=== PATIENT | male | born 1975 | race American Indian/Alaskan Native ===

== ENCOUNTER 2016-08-05 17:40 | Emergency (ER) | payer OTHER ==
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
[2016-08-05] MEDS ORDERED: ZOFRAN IV ONE (19:04)
[2016-08-05] MEDS ORDERED: MORPHINE IV ONE (19:04)
[2016-08-05 19:29] LABS: Hematocrit 39.2 % (35.5-45.6); Hemoglobin 12.6 gm/dl (11.8-15.2); Mean Corpuscular HGB Conc 32 % (32-34); Mean Corpuscular Hemoglobin 29 pg (28-32); Mean Corpuscular Volume 91 fl (84-94); Platelet Count 341 K/mm3 (140-440); Red Blood Count 4.31 M/mm3 (3.65-5.03); Red Cell Distribution Width 13.1 % (13.2-15.2); White Blood Count 6.3 K/mm3 (4.5-11.0)
--- NOTE | 2016-08-05 19:33 | Ultrasound Report ---
FINAL REPORT EXAM: US TESTICULAR DOPPLER COMP HISTORY: Testicular pain, concern for torsion TECHNIQUE: Ultrasound of scrotum PRIORS: None. FINDINGS: Examination of the testicles demonstrates both to be normal in size and normal and homogeneous in echogenicity with arterial and venous blood flow noted bilaterally. No focal abnormality is noted in either testicle. The right testicle measures 4.5 x 2.8 x 3.6 cm and the left measures 4.3 x 2.7 x 3.4 cm. No evidence for torsion is seen. The right epididymis appears normal in size and echogenicity with normal blood flow. A small cyst in the head of the right epididymis is present measuring 5.5 x 3.3 x 5.4 mm. On the left, there is diffuse enlargement of the left epididymis which is hypoechoic throughout. Hyperemia is present throughout the epididymis, also somewhat involving the left testicle. Findings suggest acute epididymo-orchitis. In addition, there is a multi septated complex moderate hydrocele in the left hemiscrotum. No evidence for varicoceles are present bilaterally. There is generalized skin thickening throughout the scrotal wall, greater on the left than the right. Findings are likely associated with edema. IMPRESSION: 1. Acute epididymo-orchitis in the left 2. Complex moderate hydrocele on the left 3. Diffuse scrotal wall thickening 4. Normal right testicle. 5. No evidence for torsion bilaterally.
[2016-08-05 19:40] LABS: INR 1.02 (0.87-1.13)
[2016-08-05 19:50] LABS: Alanine Aminotransferase 18 units/L (7-56); Albumin 3.8 g/dL (3.9-5); Albumin/Globulin Ratio 1.1 %; Alkaline Phosphatase 51 units/L (35-129); Anion Gap 20 mmol/L; BUN/Creatinine Ratio 12.22; Blood Urea Nitrogen 11 mg/dL (9-20); Calcium 9.1 mg/dL (8.4-10.2); Carbon Dioxide 26 mmol/L (22-30); Chloride 97.2 mmol/L (98-107); Glucose 92 mg/dL (75-100); Potassium 3.8 mmol/L (3.6-5.0); Sodium 139 mmol/L (137-145); Total Protein 7.4 g/dL (6.3-8.2)
[2016-08-05 19:52] LABS: Bilirubin,Direct < 0.2 mg/dL (0-0.2); Bilirubin,Indirect 0.1 mg/dL
[2016-08-05] MEDS ORDERED: NACL ONE (20:00)
[2016-08-05 20:13] LABS: Basophils % (Manual) 0 % (0.0-1.8); Blastocytes % (Manual) 0 %
[2016-08-05 20:14] LABS: Diff Status Complete; Platelet Estimate Consistent w Auto; RBC Morphology Normal
[2016-08-05 20:26] LABS: Bilirubin,Urine NEG (Negative); Blood,Urine MOD (Negative); Ketones,Urine NEG (Negative); Leukocyte Esterase,Urine SM (Negative); Mucus,Urine FEW /HPF; Nitrite,Urine NEG (Negative); Protein,Urine <15 mg/dL mg/dL (Negative)
[2016-08-05 21:00] VITALS: BP 151/93
[2016-08-05] MEDS ORDERED: XYLOCAINE 1% MPF 5 mL INFILTRATI ONE (21:48)
[2016-08-05] MEDS ORDERED: ROCEPHIN IM ONE (21:48)
--- NOTE | 2016-08-05 21:52 | Cat Scan Report ---
FINAL REPORT EXAM: CT ABDOMEN PELVIS W CON HISTORY: Abdominal Pain TECHNIQUE: Standard enhanced CT of the abdomen and pelvis. Delayed imaging through the kidneys and bladder were obtained. Coronal and sagittal reconstruction was also performed. Contrast: 100 mL Omnipaque 300 given IV. PRIORS: None. FINDINGS: Within the abdomen, the liver, spleen, pancreas, gallbladder, and adrenal glands are unremarkable. There is a 1.9 cm cyst in the upper pole left kidney. 1 cm cyst in the upper pole right kidney is seen. There is a cluster of enlarged lymph nodes in the left periaortic region, caudal to the left renal vein (axial image 75) measuring up to 1.4 x 1.2 cm. No evidence for pelvic lymphadenopathy is seen. Moderate stool is present throughout the colon. The bowel loops have normal caliber. No soft tissue mass, fluid collection, inflammatory change, or free air is seen within the abdomen or pelvis. The appendix is normal. Within the pelvis, the bladder is contains a Perez catheter but is otherwise unremarkable. The prostate is normal. No evidence for mass or lymphadenopathy is seen in the pelvis. Images through the upper abdomen include the lung bases which are expanded and clear. Bony structures show no focal abnormalities and are intact. IMPRESSION: 1. no acute intra-abdominal process noted. 2. Cluster of enlarged lymph nodes in the left periaortic region, caudal to the left renal vein. Significance is uncertain but an entity such as lymphoma is not excluded. 3. Moderate stool present throughout the entire colon which can be associated with constipation.
== END 2016-08-06 ==
LOC: ED 17:40 → EEVIPCON 17:40 → ED 08-06
DX: N45.2 Orchitis (principal); N45.1 Epididymitis; R10.30 Lower abdominal pain, unspecified; I10 Essential (primary) hypertension; I25.2 Old myocardial infarction; F17.200 Nicotine dependence, unspecified, uncomplicated
CPT/HCPCS: 36415; 74177; 80048; 80074; 81001; 85007; 85025; 85610; 93975; 96372; 96374; 96375; 99284; J0696; J2270; J2405; Q9967

== ENCOUNTER 2016-08-12 14:08 | Day surgery (SDC) | payer OTHER ==
[~2016-08-12 14:08] MED LIST: ANCEF/STERILE WATER 2 GM/20 ML 2 GM/20 ML SYRINGE IV NR; DIPRIVAN 10 MG/ML IV ONE; NACL 0.9% 1000 ML 1,000 ML IV SCH; PEPCID PO NR; VERSED IV NR
[2016-08-12] MEDS ORDERED: SUBLIMAZE ONE (14:41)
[2016-08-12] MEDS ORDERED: XYLOCAINE MPF 2% ONE (14:42)
--- NOTE | 2016-08-12 14:54 | Anesthesia Consultation ---
Anesthesia Consult and Med Hx Date of service: 08/12/16 - Airway Anesthetic Teeth Evaluation: Good (some missing teeth) ROM Head & Neck: Adequate Mental/Hyoid Distance: Adequate Mallampati Class: Class II Intubation Access Assessment: Probably Good - Pre-Operative Health Status ASA Pre-Surgery Classification: ASA2 Proposed Anesthetic Plan: General - Pulmonary Hx Smoking: Yes (1/2 pack x 20 years) - Cardiovascular System Hx Hypertension: Yes Hx Heart Attack/AMI: Yes (2004) - Endocrine Hx Renal Disease: No (scrotal swelling)
--- NOTE | 2016-08-12 14:55 | Anesthesia Day of Surgery ---
Anesthesia Day of Surgery - Day of Surgery Patient Examined: Yes Patient H&P Reviewed: Yes Patient is NPO: Yes
[2016-08-12] MEDS ORDERED: ANCEF/STERILE WATER 2 GM/20 ML 2 GM/20 ML SYRINGE IV NR (15:00)
[2016-08-12] MEDS ORDERED: ZOFRAN IV PRN (15:05)
[2016-08-12] MEDS ORDERED: DIPRIVAN 10 MG/ML IV ONE (15:30)
[2016-08-12] MEDS ORDERED: NACL 0.9% IR ONE (15:30)
[2016-08-12] MEDS ORDERED: DILAUDID ONE (15:52)
[2016-08-12] MEDS ORDERED: BREVIBLOC IV ONE (15:58)
[2016-08-12] MEDS ORDERED: DECADRON ONE (16:00)
[2016-08-12] MEDS ORDERED: NACL 0.9% 1000 ML 1,000 ML ONE (16:00)
[2016-08-12] MEDS ORDERED: ZOFRAN ONE (16:00)
[2016-08-12] MEDS ORDERED: TORADOL ONE (16:33)
--- NOTE | 2016-08-12 16:40 | Post Operative Note ---
Date of procedure: 08/12/16 Pre-op diagnosis: scrotal pain inflamation Post-op diagnosis: other (severe epididymoorchitis) Findings: purulent Procedure: L orch Anesthesia: GETA Surgeon: JASON HARO Estimated blood loss: minimal Pathology: list (l testes) Specimen disposition: to lab Condition: stable Disposition: PACU
--- NOTE | 2016-08-12 16:41 | Discharge Summary ---
Short Stay Discharge Plan Activity: other (no straining ) Weight Bearing Status: Partial Weight Bearing Diet: regular Wound: keep clean and dry Special Instructions: other (dressing change daily ) Durable Medical Equipment Needed Upon Discharge: other (has carlos alberto ) Follow up with: PRIMARY CARE, [Primary Care Provider] - 7 Days JASON HARO MD [Staff Physician] - 08/18/16
--- NOTE | 2016-08-12 16:45 | Post Anesthesia Evaluation ---
- Post Anesthesia Evaluation Patient Participated: Yes Airway Patent: Yes Stable Respiratory Function: Yes Nausea/Vomiting: No Temp > 96.8F: Yes Pain Manageable: Yes Adequeate Hydration: Yes Anesthesia Complications: No
[2016-08-12] MEDS: DILAUDID IV PRN ×3 (17:11→17:56)
--- NOTE | 2016-08-12 20:55 | Operative Report ---
PREOPERATIVE DIAGNOSES: Severe epididymal orchitis, inflammatory scrotum with the inability to walk and progressive inflammation and pain over the last approximately 2 weeks. POSTOPERATIVE DIAGNOSES: Severe epididymal orchitis, inflammatory scrotum with the inability to walk and progressive inflammation and pain over the last approximately 2 weeks. PROCEDURE: Left scrotal exploration. CULTURES: Left orchiectomy. SURGEON: Dejon Landa MD ANESTHESIA: General. FINDINGS: This is a gentleman with progressive swelling and pain, left hemiscrotum. He is now unable to walk. It has not gotten better. It has just gotten worse. I had a long discussion with the physician [facility] the [facility] and he now presents for exploration. DESCRIPTION OF PROCEDURE: The patient brought to the operating room and placed on the operating table. Following induction of anesthesia, placed in supine position, prepped and draped in usual sterile fashion. An oblique incision was carried through severe edematous scrotal tissue and fascia. This tissue was weeping with all the edema. The fascia was adherent to the tunica vaginalis. We dissected it free circumferentially and then opened this very thickened vaginalis. There was cloudy fluid, which was cultured. The vaginalis was opened, which was thickened and the entire epididymis and testis were inflamed. The testis was very small and there was a suppurative exudate all over the testis and epididymis. The entire inflammation went up the cord. There was no way to save ____ testis, which was quite small and very soft, inflamed and infected. We then isolated all the surrounding fascial fibers with vessels and tied this. The cord was divided into four segments and suture ligated and tied. The patient tolerated the procedure well. Minimal blood loss. No significant complications. Wound was irrigated. The fascia was approximated with 3-0 and 2-0 chromic, skin with 3-0 and 2-0 chromic after a Jamari drain was placed in dependent portion of the scrotum and brought to recovery room with minimal blood loss in stable condition. JOB# [id number] SANGEETA/ANNA MARIE
[2016-08-12 22:05] VITALS: BP 132/84
== END 2016-08-12 18:35 ==
LOC: OR 14:08 → EEVIPCON 16:00 → EDSTATUS 16:00 → OR 18:35
PROVIDERS: ATTEND Urology
DX: N45.2 Orchitis (principal); N49.2 Inflammatory disorders of scrotum; F17.210 Nicotine dependence, cigarettes, uncomplicated; I10 Essential (primary) hypertension; Z79.899 Other long term (current) drug therapy
CPT/HCPCS: 54522; 87075; 87116; 88305; J0690; J1100; J1170; J1885; J2250; J2405; J2704; J3010; J7030

== ENCOUNTER 2017-07-28 21:03 | Emergency (ER) | payer SELFPAY ==
[2017-07-28] MEDS ORDERED: ASPIRIN PO ONE (21:53)
[2017-07-28 21:54] VITALS: BP 115/74
[2017-07-28 22:09] LABS: Basophils % (Auto) 0.5 % (0.0-1.8); Eosinophils # (Auto) 0.5 K/mm3 (0.0-0.4); Eosinophils % (Auto) 7.3 % (0.0-4.3); Hematocrit 37.5 % (35.5-45.6); Hemoglobin 12.2 gm/dl (11.8-15.2); Lymphocytes # (Auto) 1.9 K/mm3 (1.2-5.4); Mean Corpuscular HGB Conc 33 % (32-34); Mean Corpuscular Hemoglobin 30 pg (28-32); Mean Corpuscular Volume 92 fl (84-94); Monocytes # (Auto) 0.5 K/mm3 (0.0-0.8); Platelet Count 286 K/mm3 (140-440); Red Blood Count 4.07 M/mm3 (3.65-5.03); Red Cell Distribution Width 12.9 % (13.2-15.2)
[2017-07-28 22:19] LABS: INR 0.95 (0.87-1.13)
[2017-07-28 22:20] LABS: Partial Thromboplastin Time 30.3 Sec. (24.2-36.6)
[2017-07-28 22:28] LABS: BUN/Creatinine Ratio 13; Blood Urea Nitrogen 13 mg/dL (9-20); Calcium 9.1 mg/dL (8.4-10.2); Hemolysis Index 10
== END 2017-07-29 02:55 | disposition left against medical advice (07) ==
LOC: ED 21:03
DX: R07.9 Chest pain, unspecified (principal); M54.2 Cervicalgia; I10 Essential (primary) hypertension; I25.2 Old myocardial infarction; F17.200 Nicotine dependence, unspecified, uncomplicated; Z53.21 Procedure and treatment not carried out due to patient leaving prior to being seen by health care provider
CPT/HCPCS: 36415; 80048; 84484; 85025; 85610; 85730; 93005; 93010

== ENCOUNTER 2019-01-21 05:51 | Emergency (ER) | payer SELFPAY ==
[2019-01-21] MEDS ORDERED: cloNIDine 0.1 MG TAB PO ONE ×2 (06:05→08:43)
[2019-01-21] MEDS ORDERED: cloNIDine 0.1 MG TAB ONE (06:09)
[2019-01-21] MEDS ORDERED: ONDANSETRON 4 MG/2 ML INJ IV ONE (06:48)
[2019-01-21] MEDS ORDERED: MORPHINE 4 MG/1 ML INJ IV ONE (06:48)
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
[2019-01-21 06:57] LABS: Hematocrit 41.7 % (35.5-45.6); Hemoglobin 13.7 gm/dl (11.8-15.2); Mean Corpuscular HGB Conc 33 % (32-34); Mean Corpuscular Volume 92 fl (84-94); Platelet Count 307 K/mm3 (140-440); Red Blood Count 4.51 M/mm3 (3.65-5.03); Red Cell Distribution Width 13.1 % (13.2-15.2)
--- NOTE | 2019-01-21 06:57 | Cat Scan Report ---
Examination: CT of the head without contrast Clinical information: Hypertension. Headache. Comparison: None Technical: Multiple axial CT images of the head were obtained without intravenous contrast. Sagittal and coronal reformats were obtained. All CTs at this facility utilize dose reduction techniques inc luding automated exposure control, iterative reconstruction and weight based dosing when appropriate to reduce patient radiation dose to as low as reasonable achievable. Findings: There is no CT evidence of acute intracranial hemorrhage or large territorial infarct. The ventricular system is normal in size. Evaluation of bony structures shows no evidence of acute bony abnormality. There is mild mucosal thic kening of the ethmoid air cells. Impression: 1. No CT evidence of acute intracranial process. Signer Name: Brenna Bae MD Signed: 01/21/2019 6:52 AM Workstation Name: [id number]
[2019-01-21 07:09] LABS: BUN/Creatinine Ratio 6; Blood Urea Nitrogen 6 mg/dL (9-20); Calcium 8.9 mg/dL (8.4-10.2); Hemolysis Index 16
--- NOTE | 2019-01-21 07:14 | XRay Report ---
CHEST 1 VIEW, 01/21/2019 6:50 AM CLINICAL INFORMATION/INDICATION: Cough COMPARISON: None FINDINGS: SUPPORT DEVICES: None. HEART: Cardiac silhouette and pulmonary vascularity appear within normal limits LUNGS/PLEURA: There is no focal airspace disease or significant pleural effusion ADDITIONAL FINDINGS: No additional acute findings. IMPRESSION: 1. No evidence of acute cardiopulmonary process. Signer Name: Brenna Bae MD Signed: 01/21/2019 7:10 AM Workstation Name: [email or web address]
[2019-01-21 07:58] LABS: Alanine Aminotransferase 13 units/L (7-56); Albumin 4.1 g/dL (3.9-5)
[2019-01-21 08:02] LABS: Bilirubin,Direct < 0.2 mg/dL (0-0.2)
[2019-01-21] MEDS ORDERED: KETOROLAC 30 MG/1 ML INJ IV ONE (08:43)
[2019-01-21 09:36] LABS: Bilirubin,Urine NEG (Negative); Blood,Urine NEG (Negative); Color,Urine Yellow (Yellow); Mucus,Urine FEW /HPF; Protein,Urine <15 mg/dL mg/dL (Negative); Urobilinogen,Urine < 2.0 mg/dL (<2.0); WBC,Urine < 1.0 /HPF (0.0-6.0)
[2019-01-21 09:47] LABS: Amphetamine Screen,Urine PRESUMPTIVE NEGATIVE; Benzodiazepines Screen,Urine PRESUMPTIVE NEGATIVE; Cannabinoid Screen,Urine PRESUMPTIVE NEGATIVE; Methadone Screen,Urine PRESUMPTIVE NEGATIVE; Opiate Screen,Urine PRESUMPTIVE NEGATIVE
[2019-01-21 10:35] LABS: Cocaine Screen,Urine PRESUMPTIVE POSITIVE
[2019-01-21 11:12] VITALS: BP 117/79
== END 2019-01-21 11:48 | disposition home or self-care (01) ==
LOC: ED 05:51
DX: R51 Headache (principal); R11.0 Nausea; F14.10 Cocaine abuse, uncomplicated; I10 Essential (primary) hypertension; I25.2 Old myocardial infarction; F17.200 Nicotine dependence, unspecified, uncomplicated; Z79.899 Other long term (current) drug therapy; Z91.048 Other nonmedicinal substance allergy status
CPT/HCPCS: 36415; 70450; 71045; 80048; 80076; 80307; 81001; 85027; 93005; 93010; 96374; 96375; 99285; J1885; J2270; J2405

== ENCOUNTER 2021-01-22 14:35 | Emergency (ER) | payer SELFPAY ==
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
[2021-01-22 15:27] VITALS: BP 180/118
== END 2021-01-22 15:30 | disposition home or self-care (01) ==
LOC: ED 14:35
DX: K12.2 Cellulitis and abscess of mouth (principal); I10 Essential (primary) hypertension; F17.200 Nicotine dependence, unspecified, uncomplicated; F10.20 Alcohol dependence, uncomplicated; Z88.8 Allergy status to other drugs, medicaments and biological substances; Z91.048 Other nonmedicinal substance allergy status
CPT/HCPCS: 99282